=== PATIENT | male | born 2005 | race Two or more races ===

== ENCOUNTER 2024-02-15 21:07 | Emergency (ER) | payer OTHER ==
[~2024-02-15] VITALS: Ht 170.2 cm; Wt 74.0 kg
[2024-02-15] MEDS ORDERED: IBU600T PO (22:45)
[2024-02-15 23:05] VITALS: BP 125/84; PULSE 55; RESP 17; TEMP 98.6; O2SAT 98
[2024-02-16] MEDS ORDERED: CYCL-838 PO (00:04)
== END 2024-02-15 23:10 | disposition home or self-care (01) ==
LOC: ER 21:07
DX: S43.492A Other sprain of left shoulder joint, initial encounter (principal); W18.39XA Other fall on same level, initial encounter; Y93.66 Activity, soccer; Y92.89 Other specified places as the place of occurrence of the external cause; Y99.8 Other external cause status
CPT/HCPCS: 73030